=== PATIENT | female | born 1965 | race Caucasian/White ===

== ENCOUNTER → 2019-02-04 | Outpatient (CLI) | payer BC ==
--- NOTE | 2019-02-04 16:06 | XR ---
Lumbosacral spine HISTORY: Low back pain 5 views of the lumbosacral spine There is no spondylolysis. Loss of disc height present at L5-S1 with associated vacuum phenomenon. Bobby ne mineralization is reduced. There is multilevel spondylosis. Sclerosis present in the posterior vic ments of the lower lumbar spine. IMPRESSION: Degenerative disc disease, facet arthropathy, osteopenia.
== END | disposition home or self-care (01) ==
LOC: RADXRYALE 14:12
PROVIDERS: ATTEND Internal Medicine
DX: M51.37 Other intervertebral disc degeneration, lumbosacral region (principal); M46.97 Unspecified inflammatory spondylopathy, lumbosacral region; M85.88 Other specified disorders of bone density and structure, other site
CPT/HCPCS: 72110

== ENCOUNTER → 2020-07-28 | Outpatient (CLI) | payer BC ==
--- NOTE | 2020-07-28 18:18 | MR ---
EXAMINATION TYPE: MR brain wo/w con DATE OF EXAM: 07/28/2020 COMPARISON: None HISTORY: Anosmia, Headaches CONTRAST: Performed utilizing 7 mL intravenous Gadavist gadolinium contrast. TECHNIQUE: Multiplanar, multiecho imaging on a 3.0 Amber magnet is performed through the brain. Stud y is performed within 24 hours of arrival to the hospital. The craniovertebral junction is normal. The pituitary is normal. Diffusion-weighted imaging is performed. No abnormal hyperintensity is present to suggest an acute i ntracranial infarct or acute ischemic change. Signal within the brain is normal. Following contrast administration no abnormal enhancement is evide nt. Pituitary stalk is midline. Optic chiasm is visualized is unremarkable. Cribriform plate appears unre markable. Ventricles and sulci are appropriate for the patient age. IMPRESSIONS: 1. Normal pre and postcontrast MRI brain. 2. Anosmia has been associated with coronavirus infection.
== END | disposition home or self-care (01) ==
LOC: RADMRIMAIN 12:01
PROVIDERS: ATTEND Otolaryngology
DX: R43.0 Anosmia (principal); R51.9 Headache, unspecified
CPT/HCPCS: 70553; A9585